=== PATIENT | female | born 1995 ===

== ENCOUNTER 2021-01-21 23:53 | Inpatient (IN) | payer OTHER ==
[~2021-01-21] VITALS: Ht 160 cm; Wt 94.8 kg
[2021-01-22] MEDS ORDERED: PRENATAL TABLE1 EAC1 PO (00:31)
[2021-01-22] MEDS ORDERED: ECOTRIN81 MG PO (00:31)
== END 2021-01-25 16:47 | disposition home or self-care (01) | DRG 786 ==
LOC: LDR 23:53 → OB/GYN 23:53 → O/R 01-22 07:43 → OB/GYN 01-22 08:06
PROVIDERS: ADMIT Obstetrics & Gynecology; ATTEND Obstetrics & Gynecology
PROC: 4A1HXFZ Monitoring of Products of Conception, Cardiac Rhythm, External Approach (ICD-10-PCS; 2021-01-21)
PROC: 10D00Z1 Extraction of Products of Conception, Low, Open Approach (ICD-10-PCS; principal; 2021-01-22)
DX: O65.5 Obstructed labor due to abnormality of maternal pelvic organs (principal); O60.14X0 Preterm labor third trimester with preterm delivery third trimester, not applicable or unspecified; O34.211 Maternal care for low transverse scar from previous cesarean delivery; Z3A.35 35 weeks gestation of pregnancy; Z37.0 Single live birth; Z20.822 Contact with and (suspected) exposure to COVID-19